=== PATIENT | male | born 1960 | race Caucasian/White ===

== ENCOUNTER → 2019-03-18 13:28 | Outpatient (CLI) | payer BC, SELFPAY ==
[2019-03-18 14:26] LABS: Add Manual Diff / Slide Review NO; Basophils Absolute Auto 0 /uL (0-100); Basophils Percent Auto 0.5 % (0-2); Eosinophils Absolute Auto 100 /uL (0-450); Eosinophils Percent Auto 1.7 % (2-4); Hematocrit 49.1 % (41-53); Hemoglobin 16.3 g/dL (13.5-17.5); Lymphocytes Absolute Auto 2000 /uL (1100-4500); Lymphocytes Percent Auto 26.2 % (25-40); Mean Corpuscular HGB Conc 33.2 % (30-36); Mean Corpuscular Volume 87.5 fL (80-100); Monocytes Absolute Auto 600 /uL (0-900); Monocytes Percent Auto 7.7 % (3-14); Neutrophils Absolute Auto 4800 /uL (1500-7000); Neutrophils Percent Auto 63.9 % (50-75); Platelet Count 283 X10^3/uL (150-400); Red Blood Cell Count 5.61 X10^6/uL (4.5-5.9); Red Cell Distribution Width 14.3 % (11.6-14.8); White Blood Cell Count 7.5 X10^3/uL (4.5-11.0)
[2019-03-18 14:28] LABS: Hemoglobin A1C% w Est Avg Glu 5.9 % (4.0-6.0)
[2019-03-18 16:13] LABS: Alanine Aminotransferase 29 IU/L (21-72); Albumin 4.6 g/dL (3.5-5.0); Albumin Globulin Ratio 1.4 (1.0-2.8); Alkaline Phosphatase 73 U/L (38-126); Aspartate Aminotransferase 25 IU/L (17-59); Bilirubin Total 1.3 mg/dL (0.2-1.3); Blood Urea Nitrogen 17 mg/dL (9-20); Calcium 9.8 mg/dL (8.4-10.2); Carbon Dioxide 27 mmol/L (22-32); Chloride 101 mmol/L (98-107); Cholesterol 229 mg/dL (140-199); Estimated Glomerular Filt Rate > 60.0 mL/min (>60); Globulin 3.4 g/dL (1.7-4.1); Glucose 107 mg/dL (70-100); HDL Cholesterol 50 mg/dL (40-60); HEMOLYSIS < 15 (0-50); LDL Cholesterol Calculated 157 mg/dL (<100); Potassium 4.5 mmol/L (3.4-5.1); Sodium 141 mmol/L (137-145); Triglycerides 109 mg/dL (35-150)
[2019-03-18 16:42] LABS: TSH w/ Reflex to FT4 2.03 uIU/mL (0.47-4.68)
[2019-03-18 16:43] LABS: Prostate Specific Antigen Scrn 1.41 ng/mL (0.1-4.0)
== END ==
PROVIDERS: PCP Nurse Practitioner; Visit Provider Nurse Practitioner
DX: R03.0 Elevated blood-pressure reading, without diagnosis of hypertension (principal); R73.09 Other abnormal glucose; Z13.220 Encounter for screening for lipoid disorders; Z13.29 Encounter for screening for other suspected endocrine disorder
CPT/HCPCS: 36415; 80053; 80061; 83036; 84443; 85025; G0103

== ENCOUNTER → 2021-05-27 13:04 | Outpatient (CLI) | payer OTHER, SELFPAY ==
[2021-05-27 14:16] LABS: COVID19 -Nasal RAPID POSITIVE (Negative)
== END ==
PROVIDERS: PCP Nurse Practitioner; Visit Provider Nurse Practitioner Family
DX: R35.0 Frequency of micturition (principal); U07.1 COVID-19; Z20.822 Contact with and (suspected) exposure to COVID-19; R53.83 Other fatigue; R52 Pain, unspecified
CPT/HCPCS: 87086; 87635

== ENCOUNTER 2024-03-21 10:20 | Emergency (ER) | payer SELFPAY ==
[2024-03-21] VITALS (10 sets, daily range): BP systolic 122–145; BP diastolic 81–96; PULSE 81–112; RESP 16–22; TEMP 36.2; O2SAT 96–99; BMI 24.8
--- NOTE | 2024-03-21 10:32 | DI.RAD.S_ITS ---
PROCEDURE: XR CHEST 1V INDICATIONS: chest pain TECHNIQUE: One view of the chest was acquired. COMPARISON: [facility], , CHEST 1 VIEW, 12/05/2014, 17:38. FINDINGS: Surgical changes and devices: None. Lungs and pleura: Lungs are clear. No pleural effusions or pneumothorax. Mediastinum: Mediastinal contours appear normal. Heart size is normal. Bones and chest wall: No suspicious bony lesions. Overlying soft tissues appear unremarkable. IMPRESSION: No acute cardiopulmonary abnormality is seen. Dictated by: Gael Euceda M.D. on 03/21/2024 at 10:03 Approved by: Gael Euceda M.D. on 03/21/2024 at 10:03
--- NOTE | 2024-03-21 10:39 | EKG_ITS ---
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
[2024-03-21 10:49] LABS: Add Manual Diff / Slide Review NO; Basophils Absolute Auto 0 /uL (0-100); Basophils Percent Auto 0.7 % (0-2); Eosinophils Absolute Auto 300 /uL (0-450); Eosinophils Percent Auto 3.9 % (2-4); Hematocrit 42.9 % (41-53); Hemoglobin 14.4 g/dL (13.5-17.5); Lymphocytes Absolute Auto 2100 /uL (1100-4500); Lymphocytes Percent Auto 32.6 % (25-40); Mean Corpuscular HGB Conc 33.6 % (30-36); Mean Corpuscular Hemoglobin 29.5 PG (26-34); Mean Corpuscular Volume 87.8 fL (80-100); Monocytes Absolute Auto 800 /uL (0-900); Monocytes Percent Auto 11.7 % (3-14); Neutrophils Absolute Auto 3300 /uL (1500-7000); Neutrophils Percent Auto 51.1 % (50-75); Platelet Count 290 X10^3/uL (150-400); Red Blood Cell Count 4.89 X10^6/uL (4.5-5.9); Red Cell Distribution Width 14.3 % (11.6-14.8); White Blood Cell Count 6.5 X10^3/uL (4.5-11.0)
[2024-03-21 10:56] LABS: Prothrombin Time 11.1 SECONDS (9.4-12.5)
[2024-03-21 10:59] LABS: PTT Partial Thromboplastin Tim 33 SECONDS (25.1-36.5)
[2024-03-21 11:00] LABS: Alanine Aminotransferase 24 IU/L (<50); Albumin 4.5 g/dL (3.5-5.0); Albumin Globulin Ratio 1.5 (1.0-2.8); Alkaline Phosphatase 77 U/L (38-126); Aspartate Aminotransferase 25 IU/L (17-59); Bilirubin Total 1.2 mg/dL (0.2-1.3); Blood Urea Nitrogen 19 mg/dL (9-20); Calcium 9.1 mg/dL (8.4-10.2); Carbon Dioxide 25 mmol/L (22-32); Chloride 109 mmol/L (98-107); Creatine Kinase 99 U/L (55-170); Estimated Glomerular Filt Rate > 60 mL/min (>60); Globulin 3.1 g/dL (1.7-4.1); Glucose 123 mg/dL (80-110); HEMOLYSIS < 15 (0-50); Lipase 126 U/L (23-300); Magnesium 2.2 mg/dL (1.6-2.3); Potassium 4.4 mmol/L (3.4-5.1); Sodium 139 mmol/L (137-145); Total Protein 7.6 g/dL (6.3-8.2)
[2024-03-21 11:12] LABS: NT-proBNP (BNP-Adult 18+) 608 pg/mL (<125); Troponin I < 0.012 ng/mL (0.01-0.034)
--- NOTE | 2024-03-21 11:53 | ED_ITS ---
HPI - Arrhythmia/Palpitations General Chief Complaint: Arrhythmia/Palpitations Stated Complaint: heart fibulating? Time Seen by Provider: 03/21/24 11:48 Source: patient Mode of arrival: Ambulatory Limitations: no limitations History of Present Illness HPI narrative: 63-year-old male with no reported medical issues, no prior cardiac history presents with complaint of feeling like his heart is sort of fluttering he will feel short of breath increasingly over the past week and a half. I states sometimes he will feel like he is to take a deep breath. Patient states no chest pain or pressure, no swelling in his extremities. He states about a week and a half ago he felt sort of funny he sneezed 3 times and then started to feel symptoms. He states had episodes where he is felt like his heart was irregular in the past. Patient states he is on any prescription medications. 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 Patient states no prior surgeries. No known drug allergies. He does use zin pouches of tobacco, Mani 3 mg for 5 times daily. He states he was using 6 mg but that was too much. Occasional alcohol but not regularly. He states rare marijuana maybe once monthly. Notes his mom had a cardiac arrest in the past and had mild heart attacks on her autopsy. Her his grandmother from an [place], he had an uncle that had cardiac disease he is unsure about any arrhythmias. Shyanne velez his primary care but he does not follow regularly. 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 Related Data Previous Rx's Medication Instructions Recorded metoprolol succinate 25 mg 25 mg PO DAILY #30 tabs 03/21/24 tablet,extended release 24 hr rivaroxaban 20 mg tablet (Xarelto) 20 mg PO DAILY #30 tabs 03/21/24 Allergies Allergy/AdvReac Type Severity Reaction Status Date / Time No Known Drug Allergies Allergy Verified 03/21/24 10:23 Review of Systems Review of Systems ROS Unobtainable: All systems reviewed & are unremarkable except as noted in HPI and below Patient History Medical History Difficulty urinating Fatigue Shoulder pain (~2017) Chicken pox (~1965) Surgical History Anesthesia History of hand surgery (~1996) Family History Father Cancer Mother History of heart disease Social History Smoking Status: Former smoker Smoking Status: Former smoker alcohol intake frequency: holidays/special occasions only Substance Use Type: marijuana Exam Narrative Exam Narrative: GENERAL: Alert and oriented x three, well-appearing male in mild distress HEENT: Head normocephalic, atraumatic, EOMI, pupils reactive, face symmetric, moist mucous membranes NECK: Supple, full range of motion CARDIOVASCULAR: Irregularly regular rate and rhythm without murmurs, rubs or gallops. No JVD. No edema bilateral lower extremities. RESPIRATORY: Breath sounds equal bilaterally, no wheezes rales or rhonchi. No tachypnea or accessory muscle use ABDOMEN: Soft, nontender. Normoactive bowel sounds all 4 quadrants. No guarding or rebound, rigidity, no mass : No CVA tenderness EXTREMITIES: Normal range of motion, no clubbing or edema. Neurovascularly intact NEUROLOGICAL: Cranial nerves II through XII grossly intact. Moving all extremities SKIN: Warm, dry, no petechiae, no rashes or lesions. Initial Vital Signs Initial Vital Signs: Vital Signs Temperature 97.2 F L 03/21/24 10:23 Pulse Rate 81 03/21/24 10:23 Respiratory Rate 18 03/21/24 10:23 Blood Pressure 126/88 03/21/24 10:23 Pulse Oximetry 99 03/21/24 10:23 Oxygen Delivery Method Room Air 03/21/24 10:23 Scores CHADS-VASc Congestive heart failure: no Hypertension: no Age 75 years or older: no Diabetes mellitus: no Stroke, TIA, or TE: no Vascular disease: no Age 65 to 74 years: no Sex category (female): Male CHADS-VASc Score: 0 Course Orders Ordered: ED Orders 03/21/24 10:32 XR chest 1V Stat EKG-12 Lead Stat 03/21/24 10:40 Complete Blood Count AUTO DIFF Stat Comprehensive Metabolic Panel Stat Lipase Stat Magnesium Stat NT-proBNP (BNP-Adult 18+) Stat PTT Partial Thromboplastin Anthony Stat Prothrombin Time INR Stat Troponin & CK Cardiac Panel Stat 03/21/24 12:40 Trop I [Troponin I] Stat Discontinued Medications Aspirin (Aspirin 81 Mg Chew Tab) 324 mg PO NOW ONE Stop: 03/21/24 10:33 Last Admin: 03/21/24 11:45 Dose: Not Given Documented By: Metoprolol Succinate (Metoprolol Er 25 Mg Tablet) 25 mg PO NOW ONE Stop: 03/21/24 12:21 Last Admin: 03/21/24 12:25 Dose: 25 mg Documented By: Rivaroxaban (Rivaroxaban 10 Mg Tablet) 20 mg PO NOW ONE Stop: 03/21/24 13:47 Last Admin: 03/21/24 13:57 Dose: 20 mg Documented By: TC Vital Signs Vital signs: Vital Signs - 8 hr 03/21/24 10:44 03/21/24 11:00 03/21/24 11:01 Pulse Rate 108 H 93 H Respiratory Rate 22 Blood Pressure 126/83 Pulse Oximetry 97 97 03/21/24 11:01 03/21/24 11:30 03/21/24 11:30 Pulse Rate 91 H 89 Respiratory Rate 17 16 Blood Pressure 122/81 Pulse Oximetry 97 98 03/21/24 12:00 03/21/24 12:30 03/21/24 12:30 Pulse Rate 94 H 95 H Respiratory Rate 20 19 Blood Pressure 145/92 H Pulse Oximetry 97 98 03/21/24 13:00 03/21/24 13:30 03/21/24 13:30 Pulse Rate 96 H 98 H Respiratory Rate 21 22 Blood Pressure 124/96 H Pulse Oximetry 98 96 MDM - Arrhythmia/Palpitations Lab Data 03/21/24 10:40 03/21/24 10:40 Labs: Lab Results 03/21/24 03/21/24 Range/Units 10:40 12:40 WBC 6.5 (4.5-11.0) X10^3/uL RBC 4.89 (4.5-5.9) X10^6/uL Hgb 14.4 (13.5-17.5) g/dL Hct 42.9 (41-53) % MCV 87.8 (80-100) fL MCH 29.5 (26-34) PG MCHC 33.6 (30-36) % RDW 14.3 (11.6-14.8) % Plt Count 290 (150-400) X10^3/uL Neut % (Auto) 51.1 (50-75) % Lymph % (Auto) 32.6 (25-40) % [place] % (Auto) 11.7 (3-14) % Eos % (Auto) 3.9 (2-4) % Baso % (Auto) 0.7 (0-2) % Neut # (Auto) 3300 (8912-0531) /uL Lymph # (Auto) 2100 (8145-0970) /uL [place] # (Auto) 800 (0-900) /uL Eos # (Auto) 300 (0-450) /uL Baso # (Auto) 0 (0-100) /uL PT 11.1 (9.4-12.5) SECONDS INR 1.0 (0.9-1.3) APTT 33 (25.1-36.5) SECONDS Sodium 139 (137-145) mmol/L Potassium 4.4 (3.4-5.1) mmol/L Chloride 109 H (98-107) mmol/L Carbon Dioxide 25 (22-32) mmol/L BUN 19 (9-20) mg/dL Creatinine 0.95 (0.66-1.25) mg/dL Estimated GFR > 60 (>60) mL/min BUN/Creatinine Ratio 20.0 (6-22) Glucose 123 H (80-110) mg/dL Calcium 9.1 (8.4-10.2) mg/dL Magnesium 2.2 (1.6-2.3) mg/dL Total Bilirubin 1.2 (0.2-1.3) mg/dL AST 25 (17-59) IU/L ALT 24 (<50) IU/L Alkaline Phosphatase 77 (38-126) U/L Total Creatine Kinase 99 (55-170) U/L Troponin I < 0.012 < 0.012 (0.01-0.034) ng/mL NT-Pro-B Natriuret Pep 608 H (<125) pg/mL Total Protein 7.6 (6.3-8.2) g/dL Albumin 4.5 (3.5-5.0) g/dL Globulin 3.1 (1.7-4.1) g/dL Albumin/Globulin Ratio 1.5 (1.0-2.8) Lipase 126 (23-300) U/L Imaging Data Chest x-ray: Radiologist's Impresson: Heber Gutierrez??63??M??1960 ? Allergy/Adv: No Known Drug Allergies (More??) Close Chest X-Ray (Signed) KinseyGael - 03/21/24 Launch?Image [address] [address] XRay Report Signed Patient: Heber Gutierrez MR#: [id number] : 1960 Acct:[id number] Age/Sex: 63 / M Date of Service: 03/21/24 Loc: ED Accession Number: [id number] Procedure: XR chest 1V Ordering Provider: Annabella Guajardo D.O. PROCEDURE: XR CHEST 1V INDICATIONS: chest pain TECHNIQUE: One view of the chest was acquired. COMPARISON: [facility], , CHEST 1 VIEW, 12/05/2014, 17:38. FINDINGS: Surgical changes and devices: None. Lungs and pleura: Lungs are clear. No pleural effusions or pneumothorax. Mediastinum: Mediastinal contours appear normal. Heart size is normal. Bones and chest wall: No suspicious bony lesions. Overlying soft tissues appear unremarkable. IMPRESSION: No acute cardiopulmonary abnormality is seen. Dictated by: Gael Euceda M.D. on 03/21/2024 at 10:03 Approved by: Gael Euceda M.D. on 03/21/2024 at 10:03 ECG Data Attestation: I personally reviewed and interpreted this ECG as follows: Prior ECG tracings: not available for review Interpretation: EKG shows what appears to be atrial fib, rate of 103 QRS of 100 QTC of 489, nonspecific ST change. No priors for comparison. 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 No known cardiac history, patient has not had any chest pain or pressure has felt short of breath with episodes of palpitations. He has had symptoms for at least a week and a half he has not anticoagulated not a candidate for cardioversion as he is currently stable. Patient is not on any daily medications. Labs show white count of 6.5 hemoglobin of 14 platelets of 290, INR 1, sodium 139 potassium 4.4 chloride of 109 CO2 25 BUN 19 creatinine 0.95 glucose of 123 calcium 9.1 Mag 2.2, LFTs are negative troponins less than 0.012 BNP is 608, lipase is 126. Troponin was repeated it is less than 0.012 Chest x-ray shows no acute change EKG shows appears to be atrial fibrillation, read as atrial flutter but patient is irregularly irregular with possible flutter waves but could be motion artifact. Rate is 103 QRS is 100 QTC is 489, no acute ST elevation depression. Discussed with patient he is fairly rate controlled in the room was given a dose of oral metoprolol, discussed anticoagulation risks versus benefits. Patient's CHADS-VASc score is 0. Discussed with patient he is agreeable to anticoagulation. He does not currently have insurance so we will send scripts but also given good Rx prescription and met with [employer] [employer] he is self-employed. We will give referral for Cardiology well as primary care follow up. Discussed with patient, he is fairly low risk but has likely been in and out of AFib for some time. Patient is self-employed. We will send prescription for anticoagulation but discussed warfarin is negative, discussed he is lower risk but not impossible for stroke and could not aspirin daily has not alternative. Patient is agreeable to full anticoagulation. Discharge Plan Departure Patient Disposition: Home Clinical Impression: Atrial fibrillation Instructions: DI for Atrial Fibrillation Activity Restrictions/Additional Instructions: Follow up with primary care and/or cardiology. Please call to set up an appointment contact for cardiology's included. Please call your physician tomorrow to set up follow-up. They will likely have you follow up to have an echo and possibly Holter monitor or ZIO patch to assess how frequently you are in atrial fibrillation. You appear to be in atrial fibrillation, this is an electrical conduction issue. 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 Aspirin we will give some protection but does not give complete protection against stroke. Take the Xarelto once daily. If this medication is too expensive, the pharmacist can call us if they can change it, if necessary you can follow up with primary care and they can prescribe Coumadin or warfarin which is cheaper but requires regular lab checks. Take metoprolol once daily this medication is to help control the speed of your heart rate. Prescriptions sent to [facility]. Please return for new chest pain, increasing shortness of breath any lightheadedness or passing out, persistently fast or elevated heart rate, new swelling of your extremities or other new or concerning changes. Prescriptions: New Xarelto 20 mg tablet 20 mg PO DAILY Qty: 30 0RF Rx Instructions: must administer with evening meal metoprolol succinate 25 mg tablet extended release 24 hr 25 mg PO DAILY Qty: 30 0RF Referrals: Shyanne Velez ARNP [Primary Care Provider] - Sebastien August MD [Physician] - Stand Alone Forms: Patient Portal/API
[2024-03-21] MEDS: METOPROLOL ER 25 MG TABLET PO (12:25)
[2024-03-21 13:08] LABS: Troponin I < 0.012 ng/mL (0.01-0.034)
[2024-03-21] MEDS: RIVAROXABAN 10 MG TABLET 20 MG PO (13:57)
== END 2024-03-21 14:00 | disposition home or self-care (01) ==
PROVIDERS: Emergency Provider Emergency Medicine; PCP Nurse Practitioner
DX: I48.91 Unspecified atrial fibrillation (principal); R07.9 Chest pain, unspecified; Z79.01 Long term (current) use of anticoagulants
CPT/HCPCS: 36415; 71045; 80053; 82550; 83690; 83735; 83880; 84484; 85025; 85610; 85730; 93005; 99284

== ENCOUNTER 2024-03-22 02:13 | Emergency (ER) | payer SELFPAY ==
[2024-03-22] VITALS (10 sets, daily range): BP systolic 114–139; BP diastolic 68–104; PULSE 83–100; RESP 16–33; TEMP 36.9; O2SAT 95–98; BMI 25.0
--- NOTE | 2024-03-22 03:16 | EKG_ITS ---
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
--- NOTE | 2024-03-22 03:16 | DI.RAD.S_ITS ---
PROCEDURE: XR CHEST 1V INDICATIONS: chest pain TECHNIQUE: One view of the chest was acquired. COMPARISON: [facility], CR, XR CHEST 1V, 03/21/2024, 10:42. FINDINGS: Surgical changes and devices: None. Lungs and pleura: Lungs are clear. No pleural effusions or pneumothorax. Mediastinum: Mediastinal contours appear normal. Heart size is normal. Bones and chest wall: No suspicious bony lesions. Overlying soft tissues appear unremarkable. IMPRESSION: No acute cardiopulmonary pathology. No significant changes from previous study. No discrepancies from preliminary reading. Dictated by: Huy August M.D. on 03/22/2024 at 8:03 Approved by: Huy August M.D. on 03/22/2024 at 8:04
--- NOTE | 2024-03-22 03:16 | ED.ARRPALP ---
HPI - Arrhythmia/Palpitations General Chief Complaint: Arrhythmia/Palpitations Stated Complaint: was seen earlier heart issue Time Seen by Provider: 03/22/24 03:16 Source: patient Mode of arrival: Ambulatory History of Present Illness HPI narrative: 63-year-old male seen here yesterday with palpitation symptoms found to have atrial fibrillation, was not on anticoagulation, CHADS-VASc score 0, was started on Xarelto, no rapid ventricular response, started on metoprolol, who was to be seeing Cardiology in follow up, no cardioversion, no documentation of aversion to normal sinus rhythm while in the emergency department, now presents again with palpitation like symptoms. He was going to follow up with Cardiology as an outpatient on new Xarelto anticoagulation, taking same metoprolol. He feels that he is having palpitation symptoms. No syncope or presyncope symptoms. No shortness of breath or chest pain. Patient seems more concern that he can not sleep for the last couple of days, unclear if the palpitation symptoms are actually keeping him from sleeping. He would like something for sleep Related Data Previous Rx's Medication Instructions Recorded metoprolol succinate 25 mg 25 mg PO DAILY #30 tabs 03/21/24 tablet,extended release 24 hr rivaroxaban 20 mg tablet (Xarelto) 20 mg PO DAILY #30 tabs 03/21/24 hydroxyzine HCl 50 mg tablet 50 mg PO BEDTIME #14 tabs 03/22/24 Allergies Allergy/AdvReac Type Severity Reaction Status Date / Time No Known Drug Allergies Allergy Verified 03/21/24 10:23 Review of Systems Review of Systems Narrative: per HPI Patient History Medical History Difficulty urinating Fatigue Shoulder pain (~2017) Chicken pox (~1965) Surgical History Anesthesia History of hand surgery (~1996) Family History Father Cancer Mother History of heart disease Social History Smoking Status: Former smoker Smoking Status: Former smoker alcohol intake frequency: holidays/special occasions only Substance Use Type: marijuana Exam Narrative Exam Narrative: GENERAL: Well-developed patient, in mild distress. HEAD: Atraumatic. Normocephalic. EYES: Pupils equal round and reactive. Extraocular motions intact. No scleral icterus. No injection or drainage. ENT: Nose without bleeding, purulent drainage. Throat without erythema, tonsillar hypertrophy or exudate. Airway patent. NECK: Trachea midline. Non tender CARDIOVASCULAR: Irregularly irregular without murmurs, gallops, or rubs. RESPIRATORY: Clear to auscultation. Breath sounds equal bilaterally. No wheezes, rales, or rhonchi. GASTROINTESTINAL: Abdomen soft, non-tender, nondistended. EXTREMITIES: No edema or joint tenderness. BACK: Nontender without deformity or crepitance. No flank tenderness. NEURO: AOx3. SKIN: No rash or erythema of visible areas Initial Vital Signs Initial Vital Signs: Vital Signs Temperature 98.4 F 03/22/24 02:25 Pulse Rate 91 H 03/22/24 02:25 Respiratory Rate 20 03/22/24 02:25 Blood Pressure 132/90 03/22/24 02:25 Pulse Oximetry 96 03/22/24 02:25 Oxygen Delivery Method Room Air 03/22/24 02:25 Course Orders Ordered: ED Orders 03/22/24 03:10 Complete Blood Count AUTO DIFF Stat Comprehensive Metabolic Panel Stat Lipase Stat Troponin & CK Cardiac Panel Stat 03/22/24 03:16 XR chest 1V Stat EKG-12 Lead Stat Discontinued Medications Hydroxyzine HCl (Hydroxyzine 50 Mg/Ml Inj) 50 mg IM NOW ONE Stop: 03/22/24 03:56 Last Admin: 03/22/24 04:15 Dose: Not Given Documented By: JESICA Hydroxyzine HCl (Hydroxyzine Hcl 25 Mg Tablet) 50 mg PO NOW ONE Stop: 03/22/24 04:07 Last Admin: 03/22/24 04:11 Dose: 50 mg Documented By: JESICA Sodium Chloride (Normal Saline 0.9%) 1,000 mls @ 150 mls/hr IV CONT NANETTE Last Infusion: 03/22/24 06:26 Dose: 0 mls/hr Documented By: Admin: 03/22/24 04:10 Dose: 150 mls/hr Documented By: JESICA Metoprolol Succinate (Metoprolol Er 25 Mg Tablet) 25 mg PO NOW ONE Stop: 03/22/24 03:59 Last Admin: 03/22/24 04:11 Dose: 25 mg Documented By: JESICA Vital Signs Vital signs: Vital Signs - 8 hr 03/22/24 02:25 03/22/24 03:00 03/22/24 03:01 Temperature 98.4 F Pulse Rate 91 H 83 Respiratory Rate 20 Blood Pressure 132/90 131/84 Pulse Oximetry 96 98 Oxygen Delivery Method Room Air 03/22/24 03:01 03/22/24 03:30 03/22/24 03:30 Temperature Pulse Rate 95 H 90 Respiratory Rate 20 Blood Pressure 129/87 Pulse Oximetry 97 97 Oxygen Delivery Method 03/22/24 04:00 03/22/24 04:00 03/22/24 04:11 Temperature Pulse Rate 90 98 H Respiratory Rate 17 Blood Pressure 122/80 122/80 Pulse Oximetry 95 Oxygen Delivery Method 03/22/24 04:30 03/22/24 04:30 03/22/24 05:00 Temperature Pulse Rate 97 H Respiratory Rate 32 H Blood Pressure 114/68 124/89 Pulse Oximetry 98 Oxygen Delivery Method 03/22/24 05:00 03/22/24 05:30 03/22/24 05:30 Temperature Pulse Rate 100 H 98 H Respiratory Rate 33 H 16 Blood Pressure 134/88 Pulse Oximetry 97 98 Oxygen Delivery Method 03/22/24 06:00 03/22/24 06:00 Temperature Pulse Rate 96 H Respiratory Rate 19 Blood Pressure 139/104 H Pulse Oximetry 96 Oxygen Delivery Method MDM - Arrhythmia/Palpitations Lab Data 03/22/24 03:10 03/22/24 03:10 Labs: Lab Results 03/22/24 Range/Units 03:10 WBC 5.2 (4.5-11.0) X10^3/uL RBC 4.64 (4.5-5.9) X10^6/uL Hgb 13.6 (13.5-17.5) g/dL Hct 40.7 L (41-53) % MCV 87.7 (80-100) fL MCH 29.4 (26-34) PG MCHC 33.5 (30-36) % RDW 14.6 (11.6-14.8) % Plt Count 265 (150-400) X10^3/uL Neut % (Auto) 43.7 L (50-75) % Lymph % (Auto) 36.6 (25-40) % [place] % (Auto) 13.0 (3-14) % Eos % (Auto) 5.8 H (2-4) % Baso % (Auto) 0.9 (0-2) % Neut # (Auto) 2300 (5702-0662) /uL Lymph # (Auto) 1900 (7228-6530) /uL [place] # (Auto) 700 (0-900) /uL Eos # (Auto) 300 (0-450) /uL Baso # (Auto) 0 (0-100) /uL Sodium 139 (137-145) mmol/L Potassium 3.9 (3.4-5.1) mmol/L Chloride 110 H (98-107) mmol/L Carbon Dioxide 23 (22-32) mmol/L BUN 21 H (9-20) mg/dL Creatinine 0.83 (0.66-1.25) mg/dL Estimated GFR > 60 (>60) mL/min BUN/Creatinine Ratio 25.3 H (6-22) Glucose 127 H (80-110) mg/dL Calcium 8.9 (8.4-10.2) mg/dL Total Bilirubin 0.8 (0.2-1.3) mg/dL AST 22 (17-59) IU/L ALT 21 (<50) IU/L Alkaline Phosphatase 78 (38-126) U/L Total Creatine Kinase 79 (55-170) U/L Troponin I < 0.012 (0.01-0.034) ng/mL Total Protein 6.9 (6.3-8.2) g/dL Albumin 4.0 (3.5-5.0) g/dL Globulin 2.9 (1.7-4.1) g/dL Albumin/Globulin Ratio 1.4 (1.0-2.8) Lipase 145 (23-300) U/L Imaging Data Chest x-ray: Radiologist's Impresson: ?no acute cardiopulmonary abnormality is identified. ? see tele radiology report ECG Data Interpretation: Atrial fibrillation with rate 91, QRS 100, QTC 460. No obvious ST segment elevation or depression changes. [facility] Narrative Medical decision making narrative: 63-year-old male with diagnosis of atrial fibrillation visit yesterday, low anticoagulation risk score CHADS-VASc, started on Xarelto anticoagulation, advised to continue metoprolol, was awaiting cardiology follow up. Returns with palpitation symptoms. No syncope or presyncope. No chest pain. Afebrile, sirs screen negative. Screening EKG shows atrial fibrillation with ventricular rate 91, without obvious ischemic changes. Electrolytes and troponin negative. Patient most concerned about lack of sleep, would like something for sleep. He does not want to have benzodiazepines that might be addictive. PO hydroxyzine He felt better, wanted to go home, we will prescribe trial of hydroxyzine to see if this helps with his insomnia to use before bed. Otherwise encouraged to continue his metoprolol and Xarelto new medications, and follow up with Cardiology as planned from visit yesterday. Expressed understanding of this plan, and agreed. Home with family. Return precautions discussed Discharge Plan Departure Patient Disposition: Home Clinical Impression: Insomnia, Atrial fibrillation Activity Restrictions/Additional Instructions: Recent evaluation for atrial fibrillation, started on Xarelto anticoagulation and metoprolol for rate control yesterday, not yet filling the medication. Today had more concern about inability to sleep and insomnia. Oral hydroxyzine given, tolerated well. EKG showed presence of atrial fibrillation, without rapid response. Morning dose of metoprolol given. Failure medication prescriptions and take as directed. Consider use of hydroxyzine, prescription sent to your pharmacy, to see if it might help with sleep. 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 Return to this/nearest emergency department for any change worsening symptoms or any concerns prior Prescriptions: New hydroxyzine HCl 50 mg tablet 50 mg PO BEDTIME Qty: 14 0RF No Action Xarelto 20 mg tablet 20 mg PO DAILY Qty: 30 0RF Rx Instructions: must administer with evening meal metoprolol succinate 25 mg tablet extended release 24 hr 25 mg PO DAILY Qty: 30 0RF Referrals: Shyanne Velez ARNP [Primary Care Provider] - Stand Alone Forms: Patient Portal/API
[2024-03-22 03:29] LABS: Add Manual Diff / Slide Review NO; Basophils Absolute Auto 0 /uL (0-100); Basophils Percent Auto 0.9 % (0-2); Eosinophils Absolute Auto 300 /uL (0-450); Eosinophils Percent Auto 5.8 % (2-4); Hematocrit 40.7 % (41-53); Hemoglobin 13.6 g/dL (13.5-17.5); Lymphocytes Absolute Auto 1900 /uL (1100-4500); Lymphocytes Percent Auto 36.6 % (25-40); Mean Corpuscular HGB Conc 33.5 % (30-36); Mean Corpuscular Hemoglobin 29.4 PG (26-34); Mean Corpuscular Volume 87.7 fL (80-100); Monocytes Absolute Auto 700 /uL (0-900); Neutrophils Absolute Auto 2300 /uL (1500-7000); Neutrophils Percent Auto 43.7 % (50-75); Platelet Count 265 X10^3/uL (150-400); Red Blood Cell Count 4.64 X10^6/uL (4.5-5.9); Red Cell Distribution Width 14.6 % (11.6-14.8); White Blood Cell Count 5.2 X10^3/uL (4.5-11.0)
[2024-03-22 03:41] LABS: Alanine Aminotransferase 21 IU/L (<50); Albumin Globulin Ratio 1.4 (1.0-2.8); Alkaline Phosphatase 78 U/L (38-126); Aspartate Aminotransferase 22 IU/L (17-59); BUN Creatinine Ratio 25.3 (6-22); Bilirubin Total 0.8 mg/dL (0.2-1.3); Blood Urea Nitrogen 21 mg/dL (9-20); Calcium 8.9 mg/dL (8.4-10.2); Carbon Dioxide 23 mmol/L (22-32); Chloride 110 mmol/L (98-107); Creatine Kinase 79 U/L (55-170); Estimated Glomerular Filt Rate > 60 mL/min (>60); Globulin 2.9 g/dL (1.7-4.1); Glucose 127 mg/dL (80-110); HEMOLYSIS < 15 (0-50); Lipase 145 U/L (23-300); Potassium 3.9 mmol/L (3.4-5.1); Sodium 139 mmol/L (137-145); Total Protein 6.9 g/dL (6.3-8.2)
[2024-03-22 03:52] LABS: Troponin I < 0.012 ng/mL (0.01-0.034)
[2024-03-22] MEDS: SODIUM CHLORIDE 0.9% 1,000 ML 150 ML IV (04:10)
[2024-03-22] MEDS: METOPROLOL ER 25 MG TABLET PO (04:11)
[2024-03-22] MEDS: hydrOXYzine HCL 25 MG TABLET 50 MG PO (04:11)
== END 2024-03-22 06:29 | disposition home or self-care (01) ==
PROVIDERS: Emergency Provider Emergency Medicine; PCP Nurse Practitioner
DX: I48.91 Unspecified atrial fibrillation (principal); Z79.01 Long term (current) use of anticoagulants; G47.00 Insomnia, unspecified
CPT/HCPCS: 36415; 71045; 80053; 82550; 83690; 84484; 85025; 93005; 99284; A9270

== ENCOUNTER 2024-09-18 02:01 | Emergency (ER) | payer SELFPAY ==
[2024-09-18] VITALS (7 sets, daily range): BP systolic 145–207; BP diastolic 98–111; PULSE 86–107; RESP 16–17; TEMP 36.7; O2SAT 97–100; BMI 23.7
--- NOTE | 2024-09-18 02:26 | ED_ITS ---
HPI - General Adult General Chief complaint: Abdominal Pain Stated complaint: knot in stomach Time Seen by Provider: 09/18/24 02:20 Source: patient Mode of arrival: Ambulatory History of Present Illness HPI narrative: Patient is a 64-year-old male. Here for evaluation of stomach discomfort. He states he was recently been here in the hospital. Was diagnosed with AFib. Had that issue resolved. Was on medications but he states that he was since stopped taking the medicine because he felt like he was causing issues to include abdominal pain and problems urinating. He reports no chest pain or shortness of breath or fevers. He states that he was able to urinate but it takes quite a bit for him to start the stream. He was to strain quite a bit. While he was straining earlier this evening he had a sharp pain in the left side of his abdomen that up to his left flank. He was had a urinary tract infection in the past. Does not see urology on a regular basis. No problems with bowel movements. Related Data Previous Rx's Medication Instructions Recorded metoprolol succinate 25 mg 25 mg PO DAILY #30 tabs 03/21/24 tablet,extended release 24 hr rivaroxaban 20 mg tablet (Xarelto) 20 mg PO DAILY #30 tabs 03/21/24 hydroxyzine HCl 50 mg tablet 50 mg PO BEDTIME #14 tabs 03/22/24 tamsulosin 0.4 mg capsule (Flomax) 0.4 mg PO DAILY #30 caps 09/18/24 Allergies Allergy/AdvReac Type Severity Reaction Status Date / Time No Known Drug Allergies Allergy Verified 03/21/24 10:23 Review of Systems Review of Systems ROS Unobtainable: All systems reviewed & are unremarkable except as noted in HPI and below Patient History Medical History Difficulty urinating Fatigue Shoulder pain (~2017) Chicken pox (~1965) Surgical History Anesthesia History of hand surgery (~1996) Family History Father Cancer Mother History of heart disease Social History Smoking Status: Former smoker Smoking Status: Former smoker alcohol intake frequency: holidays/special occasions only Exam Initial Vital Signs Initial Vital Signs: Vital Signs Temperature 98.0 F 09/18/24 02:14 Pulse Rate 86 09/18/24 02:14 Respiratory Rate 17 09/18/24 02:14 Blood Pressure 207/102 H 09/18/24 02:14 Pulse Oximetry 98 09/18/24 02:14 Oxygen Delivery Method Room Air 09/18/24 02:14 Const General: cooperative and No ill appearing HENTN Head: normal to inspection and normocephalic Resp Effort & Inspection: normal respiratory effort Cardio Rate: regular rate GI Inspection: distended Palpation: soft, No firm, No guarding and tender (Left lower quadrant) Skin General: no rashes or lesions noted Neuro General: patient alert and moves all extremities Course Orders Ordered: ED Orders 09/18/24 02:25 Complete Blood Count AUTO DIFF Stat Comprehensive Metabolic Panel Stat Lipase Stat 09/18/24 02:27 CT abdomen pelvis w con Stat Discontinued Medications Lidocaine HCl (Lidocaine 2% (Glydo) 6 Ml Gel) 6 ml TOP NOW ONE Stop: 09/18/24 03:35 Last Admin: 09/18/24 03:45 Dose: 6 ml Documented By: GOLD Vital Signs Vital signs: Vital Signs - 8 hr 09/18/24 02:14 09/18/24 02:30 09/18/24 03:03 Temperature 98.0 F Pulse Rate 86 98 H 107 H Respiratory Rate 17 16 Blood Pressure 207/102 H 151/111 H Pulse Oximetry 98 97 Oxygen Delivery Method Room Air Room Air 09/18/24 03:30 09/18/24 04:00 Temperature Pulse Rate 99 H 94 H Respiratory Rate Blood Pressure 148/98 H Pulse Oximetry 99 98 Oxygen Delivery Method Room Air Medical Decision Making Medical Records Medical records reviewed: Yes I reviewed the patient's medical records. Lab Data Lab results reviewed: Yes I reviewed the patient's lab results. 09/18/24 02:25 09/18/24 02:25 Labs: Lab Results 09/18/24 Range/Units 02:25 WBC 8.6 (4.5-11.0) X10^3/uL RBC 4.51 (4.5-5.9) X10^6/uL Hgb 13.4 L (13.5-17.5) g/dL Hct 40.0 L (41-53) % MCV 88.8 (80-100) fL MCH 29.7 (26-34) PG MCHC 33.4 (30-36) % RDW 14.2 (11.6-14.8) % Plt Count 247 (150-400) X10^3/uL Neut % (Auto) 63.3 (50-75) % Lymph % (Auto) 23.2 L (25-40) % [place] % (Auto) 9.8 (3-14) % Eos % (Auto) 3.2 (2-4) % Baso % (Auto) 0.5 (0-2) % Neut # (Auto) 5500 (3137-5604) /uL Lymph # (Auto) 2000 (8907-2685) /uL [place] # (Auto) 800 (0-900) /uL Eos # (Auto) 300 (0-450) /uL Baso # (Auto) 0 (0-100) /uL Sodium 137 (137-145) mmol/L Potassium 4.1 (3.4-5.1) mmol/L Chloride 108 H (98-107) mmol/L Carbon Dioxide 23 (22-32) mmol/L BUN 27 H (9-20) mg/dL Creatinine 1.92 H (0.66-1.25) mg/dL Estimated GFR 39 L (>60) mL/min BUN/Creatinine Ratio 14.1 (6-22) Glucose 113 H (80-110) mg/dL Calcium 9.4 (8.4-10.2) mg/dL Total Bilirubin 0.8 (0.2-1.3) mg/dL AST 36 (17-59) IU/L ALT 32 (<50) IU/L Alkaline Phosphatase 78 (38-126) U/L Total Protein 7.4 (6.3-8.2) g/dL Albumin 4.2 (3.5-5.0) g/dL Globulin 3.2 (1.7-4.1) g/dL Albumin/Globulin Ratio 1.3 (1.0-2.8) Lipase 150 (23-300) U/L Urine Dip Bedside Urine Glucose Negative Bedside Urine Bilirubin - Negative Bedside Urine Ketone - Negative Urine Specific [place] 1.010 Bedside Urine Occult Blood - Negative Bedside Urine pH 6.0 Bedside Urine Protein - Negative Bedside Urine Urobilinogen - Negative Bedside Urine Nitrite - Negative Bedside Urine Leukocytes - Negative Esterase Point of care testing: Urine Dip Bedside Urine Glucose Negative Bedside Urine Bilirubin - Negative Bedside Urine Ketone - Negative Urine Specific [place] 1.010 Bedside Urine Occult Blood - Negative Bedside Urine pH 6.0 Bedside Urine Protein - Negative Bedside Urine Urobilinogen - Negative Bedside Urine Nitrite - Negative Bedside Urine Leukocytes - Negative Esterase Imaging Data CT scan - abdomen/pelvis: Radiologist's Impression: Findings indicative of bladder outlet obstruction resulting in moderate to severe bilateral hydronephrosis and hydroureter. MDM Narrative Medical decision making narrative: Patient does have an elevation in his creatinine. CT scan shows markedly distended bladder. Alicea catheter was placed. Result in almost 3 L of urine. Urinalysis is unremarkable. I suspect that his symptoms are related to chronic outlet obstruction most likely related to enlarged prostate. He states that after his Alicea catheter was placed he was feeling much better. There was no signs of a urinary tract infection. Will start the patient on Flomax. Discharged home with Alicea catheter in place. Will have him follow up with Urology. He was given return precautions. He expressed understanding and agreement. Discharge Plan Departure Patient Disposition: Home Clinical Impression: Acute urinary retention Instructions: How to Care for Your Alicea Catheter -- Male, DI for Urinary Retention in Men Activity Restrictions/Additional Instructions: I do recommend that you continue to take all of your medications as directed. On Friday contact the urology office with the number provided below for follow- up. Also recommend you contact your primary doctor for follow-up. Return to the emergency department for new symptoms. Prescriptions: New tamsulosin [Flomax] 0.4 mg capsule 0.4 mg PO DAILY Qty: 30 0RF No Action Xarelto 20 mg tablet 20 mg PO DAILY Qty: 30 0RF Rx Instructions: must administer with evening meal metoprolol succinate 25 mg tablet extended release 24 hr 25 mg PO DAILY Qty: 30 0RF hydroxyzine HCl 50 mg tablet 50 mg PO BEDTIME Qty: 14 0RF Referrals: Humphrey García DO [Physician] - Shyanne Velez ARNP [Primary Care Provider] - Stand Alone Forms: Patient Portal/API/Survey
--- NOTE | 2024-09-18 02:27 | DI.CT.S_ITS ---
PROCEDURE: CT ABDOMEN PELVIS W CON INDICATIONS: Left lower quadrant abdominal pain TECHNIQUE: After the administration of intravenous contrast, axial sections acquired from the lung bases to the pubic symphysis. Coronal and sagittal reformats were performed. For radiation dose reduction, the following was used: automated exposure control, adjustment of mA and/or kV according to patient size. COMPARISON: [facility], CT, ABDOMEN/PELVIS WITH CONTRAST, 12/05/2014, 18:44. FINDINGS: Image quality: Diagnostic Lower chest: Basal atelectasis. Multiple small pulmonary nodules again seen, none overtly suspicious appearing. They are under 6 mm. Consider 1 year follow-up if the patient is considered at elevated risk of lung malignancy. Liver: Unremarkable Gallbladder and biliary system: Unremarkable, nondilated Pancreas: No ductal dilation Spleen: Nonenlarged Adrenals: No discrete nodules Kidneys: No obstructing stone is seen, however there is bilateral moderate hydroureteronephrosis. Delayed nephrogram, greater on the right. Mild perinephric edematous fat stranding. No solid renal mass Vessels and lymph nodes: Main portal vein appears patent. No abdominal aortic aneurysm. No pathologic lymph nodes by size criteria. Bowel and peritoneum: No evidence of small bowel obstruction. No pathologic ascites. Body wall: Unremarkable Pelvis: Heterogeneous prostate, not well assessed on this study. There is medial lobe hypertrophy which impinges at the bladder neck. The bladder is markedly distended. Bones: There are degenerative changes. Multiple endplate deformities have the appearance of Schmorl's nodes. IMPRESSION: Marked bladder distension, likely secondary to outlet obstruction due to BPH and medial lobe hypertrophy of the prostate. Upstream obstructive nephropathy and moderate bilateral hydroureteronephrosis. The prostate can be better evaluated with MRI, depending on PSA correlation, if indicated. Other findings above. No significant discrepancy from the preliminary report. Dictated by: Williams Machado M.D. on 09/18/2024 at 8:25 Approved by: Williams Machado M.D. on 09/18/2024 at 8:32
[2024-09-18 02:35] LABS: Add Manual Diff / Slide Review NO; Basophils Absolute Auto 0 /uL (0-100); Basophils Percent Auto 0.5 % (0-2); Eosinophils Absolute Auto 300 /uL (0-450); Eosinophils Percent Auto 3.2 % (2-4); Hemoglobin 13.4 g/dL (13.5-17.5); Lymphocytes Absolute Auto 2000 /uL (1100-4500); Lymphocytes Percent Auto 23.2 % (25-40); Mean Corpuscular HGB Conc 33.4 % (30-36); Mean Corpuscular Hemoglobin 29.7 PG (26-34); Mean Corpuscular Volume 88.8 fL (80-100); Monocytes Absolute Auto 800 /uL (0-900); Monocytes Percent Auto 9.8 % (3-14); Neutrophils Absolute Auto 5500 /uL (1500-7000); Neutrophils Percent Auto 63.3 % (50-75); Platelet Count 247 X10^3/uL (150-400); Red Blood Cell Count 4.51 X10^6/uL (4.5-5.9); Red Cell Distribution Width 14.2 % (11.6-14.8); White Blood Cell Count 8.6 X10^3/uL (4.5-11.0)
[2024-09-18 02:44] LABS: Alanine Aminotransferase 32 IU/L (<50); Albumin 4.2 g/dL (3.5-5.0); Albumin Globulin Ratio 1.3 (1.0-2.8); Alkaline Phosphatase 78 U/L (38-126); Aspartate Aminotransferase 36 IU/L (17-59); BUN Creatinine Ratio 14.1 (6-22); Bilirubin Total 0.8 mg/dL (0.2-1.3); Blood Urea Nitrogen 27 mg/dL (9-20); Calcium 9.4 mg/dL (8.4-10.2); Carbon Dioxide 23 mmol/L (22-32); Chloride 108 mmol/L (98-107); Estimated Glomerular Filt Rate 39 mL/min (>60); Globulin 3.2 g/dL (1.7-4.1); Glucose 113 mg/dL (80-110); HEMOLYSIS < 15 (0-50); Lipase 150 U/L (23-300); Potassium 4.1 mmol/L (3.4-5.1); Sodium 137 mmol/L (137-145); Total Protein 7.4 g/dL (6.3-8.2)
[2024-09-18] MEDS: LIDOCAINE 2% (GLYDO) 6 ML GEL TOP (03:45)
--- NOTE | 2024-09-18 04:40 | PC.NURSE ---
this RN educated patient on changing his catheter bag to a leg bag. all questions answered.
== END 2024-09-18 04:51 | disposition home or self-care (01) ==
PROVIDERS: Emergency Provider Emergency Medicine; PCP Nurse Practitioner
DX: R33.9 Retention of urine, unspecified (principal); R10.32 Left lower quadrant pain
CPT/HCPCS: 36415; 51702; 74177; 80053; 81003; 83690; 85025; 99284; Q9967

== ENCOUNTER 2024-09-18 14:55 | Emergency (ER) | payer SELFPAY ==
[2024-09-18 15:16] VITALS: BP 161/103; PULSE 71; RESP 17; TEMP 37.1; O2SAT 98; BMI 24.4
[2024-09-18 18:25] VITALS: BP 119/73; PULSE 68; RESP 19; TEMP 36.4; O2SAT 97
--- NOTE | 2024-09-18 19:38 | ED_ITS ---
HPI - Recheck/Abnormal Lab/Rx General Chief Complaint: Recheck/Abnormal Lab/Rx Stated Complaint: return from 09/17 catheter issues Time Seen by Provider: 09/18/24 19:27 Source: patient Mode of arrival: Ambulatory History of Present Illness HPI narrative: Patient is a 64-year-old male. I then went in the emergency department yesterday for an acute urinary retention. He had a Alicea catheter placed. Return of almost 3 L of urine. He was started on Flomax. Discharged home. He states that his catheter has been draining but now it is draining blood and he was having some discomfort at the tip of his penis because of the Alicea cathet er. Related Data Previous Rx's Medication Instructions Recorded metoprolol succinate 25 mg 25 mg PO DAILY #30 tabs 03/21/24 tablet,extended release 24 hr rivaroxaban 20 mg tablet (Xarelto) 20 mg PO DAILY #30 tabs 03/21/24 hydroxyzine HCl 50 mg tablet 50 mg PO BEDTIME #14 tabs 03/22/24 lidocaine 5 % topical gel 1 ea topical TID PRN Catheter pain 09/18/24 #10 grams tamsulosin 0.4 mg capsule (Flomax) 0.4 mg PO DAILY #30 caps 09/18/24 Allergies Allergy/AdvReac Type Severity Reaction Status Date / Time No Known Drug Allergies Allergy Verified 09/18/24 15:16 Review of Systems Gastrointestinal Gastrointestinal: Reports system reviewed and no additional complaints, except as documented Genitourinary Genitourinary: Reports system reviewed and no additional complaints, except as documented Patient History Medical History Difficulty urinating Fatigue Shoulder pain (~2017) Chicken pox (~1965) Surgical History Anesthesia History of hand surgery (~1996) Family History Father Cancer Mother History of heart disease Social History Smoking Status: Former smoker Smoking Status: Former smoker alcohol intake frequency: holidays/special occasions only Exam Initial Vital Signs Initial Vital Signs: Vital Signs Temperature 98.7 F 09/18/24 15:16 Pulse Rate 71 09/18/24 15:16 Respiratory Rate 17 09/18/24 15:16 Blood Pressure 161/103 H 09/18/24 15:16 Pulse Oximetry 98 09/18/24 15:16 Oxygen Delivery Method Room Air 09/18/24 15:16 GI Inspection: normal to inspection and non-distended Other: Alicea catheter in place. Tip of penis appears intact without ulcerations. Course Orders Ordered: Discontinued Medications Lidocaine HCl (Lidocaine Jelly 2% 5 Ml) 1 applic TOP NOW ONE Stop: 09/18/24 19:36 Lidocaine HCl (Lidocaine 2% (Glydo) 6 Ml Gel) 6 ml TOP NOW ONE Stop: 09/18/24 19:40 Last Admin: 09/18/24 19:46 Dose: 6 ml Documented By: GRETEL Vital Signs Vital signs: Vital Signs - 8 hr 09/18/24 20:00 Pulse Rate 76 Respiratory Rate 16 Blood Pressure 144/80 H Pulse Oximetry 98 Oxygen Delivery Method Room Air MDM - Recheck/Abnormal Lab/Rx MDM Narrative Medical decision making narrative: Patient's Alicea catheter is draining but there is blood in the urine. Provided reassurance to the patient this is most likely because of the insertion yesterday and also the fact that his bladder was so distended. We discussed that this could be persistent but as long as it is draining it is okay to observe. Will provide lidocaine for the tip of the penis as he was getting some irritation in this area from the Alicea catheter. He was given return precautions and follow-up instructions. He expressed understanding and agreement with the plan. Discharge Plan Departure Patient Disposition: Home Clinical Impression: Hematuria Instructions: DI for Hematuria Activity Restrictions/Additional Instructions: Sure that you are staying hydrated so that you are producing urine to clear out the blood that is present. Continue to take the Flomax. Use the topical lidocaine cream as needed. Continue with the plan to follow up with Urology. Return to the emergency department for new symptoms. Prescriptions: New lidocaine 5 % gel 1 ea topical TID PRN (Reason: Catheter pain) Qty: 10 0RF No Action tamsulosin [Flomax] 0.4 mg capsule 0.4 mg PO DAILY Qty: 30 0RF Xarelto 20 mg tablet 20 mg PO DAILY Qty: 30 0RF Rx Instructions: must administer with evening meal metoprolol succinate 25 mg tablet extended release 24 hr 25 mg PO DAILY Qty: 30 0RF hydroxyzine HCl 50 mg tablet 50 mg PO BEDTIME Qty: 14 0RF Referrals: Shyanne Velez ARNP [Primary Care Provider] - Stand Alone Forms: Patient Portal/API/Survey
[2024-09-18] MEDS: LIDOCAINE 2% (GLYDO) 6 ML GEL TOP (19:46)
[2024-09-18 20:00] VITALS: BP 144/80; PULSE 76; RESP 16; O2SAT 98
== END 2024-09-18 20:02 | disposition home or self-care (01) ==
PROVIDERS: Emergency Provider Emergency Medicine; PCP Nurse Practitioner
DX: R31.9 Hematuria, unspecified (principal)
CPT/HCPCS: 99282

== ENCOUNTER 2024-10-12 02:29 | Emergency (ER) | payer SELFPAY ==
[2024-10-12 02:40] VITALS: BP 137/87; PULSE 40; RESP 18; TEMP 36.5; BMI 30.9
--- NOTE | 2024-10-12 03:05 | ED_ITS ---
HPI - Male Genitourinary General Chief complaint: Urogenital-Male Stated complaint: BLADDER INFECTION Time Seen by Provider: 10/12/24 03:04 Source: patient Mode of arrival: Ambulatory History of Present Illness HPI Narrative: Patient is a 62-year-old male with a past medical history of hyperlipidemia, and acute urinary retention that required catheter previously not requiring it now comes into the ED for evaluation of difficulty urinating, stating that there is also abnormal discharge. States this started today, he states that he did have a catheter removed by his urologist on the of this month, has been having intermittent difficulty initiating a stream but has had significant improvement over the past few days until today which is why he came into the ED for further evaluation treatment. He denies any other symptoms such as headache visual disturbances chest pain shortness breath fever chills nausea vomiting or any other GI/ symptoms time. Related Data Previous Rx's Medication Instructions Recorded tamsulosin 0.4 mg capsule 0.8 mg (2 x 0.4 mg) PO DAILY #180 10/05/24 caps cephalexin 500 mg capsule 500 mg PO TID 7 days #21 caps 10/12/24 Allergies Allergy/AdvReac Type Severity Reaction Status Date / Time No Known Drug Allergies Allergy Verified 09/23/24 11:35 Review of Systems Review of Systems Narrative: General: Denies fever, chills, weight loss HEENT: Denies headache, eye drainage, eye irritation, head trauma, sore throat, voice change Cardiovascular: Denies any chest pain, palpitations, shortness of breath, tachycardia Respiratory: Denies any shortness of breath, cough, wheeze, stridor GI/: Positive urinary retention, Denies any abdominal pain, nausea, vomiting, diarrhea, bright red blood per rectum, melanotic stools, urinary frequency, dysuria, hematuria MSK: Denies any joint pain, muscle pains, swelling Skin: Denies any rashes, lesions, discoloration Neuro: Denies any headache, lightheadedness, dizziness, fainting, weakness Psych: Denies SI/HI Patient History Medical History Hx of atrial fibrillation, no current medication Difficulty urinating Fatigue Shoulder pain (~2018) Chicken pox (~1965) Surgical History Anesthesia History of hand surgery (~1996) Family History Father Cancer Mother History of heart disease Social History marital status: unmarried,single number of children: 3 Smoking Status: Former smoker Tobacco: How many years used: 7 Smokeless tobacco user: chewing tobacco alcohol intake: current caffeine: Yes Smoking Status: Former smoker alcohol intake frequency: holidays/special occasions only Exam Narrative Exam Narrative: General: Cooperative, comfortable, well-developed, not in acute distress HEENT: Normocephalic, atraumatic, PERRLA, normal sclera, eyelids normal, Neck: Active full range of motion, atraumatic Chest: Normal to inspection, negative crepitus, no overlying erythema ecchymosis Respiratory: Normal respiratory effort, not in acute respiratory distress, clear to auscultation bilaterally negative cough, wheeze, tachypnea, rhonchi, rales Cardiology: Regular rate rhythm negative gallop, murmur, rubs GI/: Normal to inspection, soft, nonrigid, no tenderness to palpation, exam deferred MSK: Full range of active range of motion of all 4 extremities, atraumatic Skin: No rashes lesions noted Neuro: Alert awake oriented x3, moves all 4 extremities spontaneously, cranial nerves intact, able to answer all questions appropriately follows commands appropriately Psych: Cooperative, negative suicidal or homicidal ideations Initial Vital Signs Initial Vital Signs: Vital Signs Temperature 97.7 F 10/12/24 02:40 Pulse Rate 40 L 10/12/24 02:40 Respiratory Rate 18 10/12/24 02:40 Blood Pressure 137/87 10/12/24 02:40 Course Orders Ordered: ED Orders 10/12/24 03:18 Urine Culture Stat Urine Microscopic Stat Vital Signs Vital signs: Vital Signs - 8 hr 10/12/24 02:40 Temperature 97.7 F Pulse Rate 40 L Respiratory Rate 18 Blood Pressure 137/87 MDM - Male Genitourinary Differential Diagnosis Differential diagnosis: Likely urinary tract infection and other (Urinary retention) Lab Data Labs: Lab Results 10/12/24 Range/Units 03:18 Urine RBC None seen (0-5/HPF) Urine WBC >100/hpf H (0-5/HPF) Ur Squamous Epith Cells 0-1 /hpf (0-5/HPF) Urine Bacteria Many (>30) H (None) Ur Culture Indicated? Specimen cultured Vol Urine Centrifuged 10ml (spun) Urine Dip Bedside Urine Glucose Negative Bedside Urine Bilirubin - Negative Bedside Urine Ketone - Negative Urine Specific [place] 1.020 Bedside Urine Occult Blood + Bedside Urine pH 6.0 Bedside Urine Protein +/- 15 Bedside Urine Urobilinogen - Negative Bedside Urine Nitrite - Negative Bedside Urine Leukocytes +++ 500 Esterase MDM Narrative Medical decision making narrative: 64-year-old male history of intermittent urinary retention comes into the ED for evaluation dysuria, urinary retention/hesitancy, states he had his urinary catheter removed on 09/30/2024 by his urologist, he said he has had improved symptoms of urinating since then but today had difficulty, also states he is noticed abnormal discharge therefore decided come into the ED for further evaluation treatment. Urinalysis consistent with acute urinary tract infection postvoid residual was 230 therefore risks benefits was performed with the patient and understands and agrees with having Alicea catheter placed and him to follow up with his urologist in outpatient setting, he verbalized understanding of this patient will be sent home with antibiotics Alicea catheter instructed to follow up with his urologist PCP in outpatient setting agrees to being discharged home with outpatient follow up Discharge Plan Departure Patient Disposition: Home Clinical Impression: Acute urinary retention, Urinary tract infection Instructions: How to Care for Your Alicea Catheter -- Male, DI for Urinary Retention in Men Activity Restrictions/Additional Instructions: Please follow up with your urologist Please read the discharge instructions sheet carefully and bring all papers to all doctor follow-up visits, as it may contain information that your doctor may want to see. Disease processes change and evolve, if your symptoms worsen or if you develop any new symptoms that are concerning to you please return for evaluation. Your evaluation today does not show any evidence of any life- threatening/serious illnesses requiring admission to the hospital or surgery. Please follow-up with your doctor for re-evaluation in approximately 1 day. Seek immediate medical attention for any worrisome symptoms. *If you do not have a primary care provider please contact the [facility] Resource line at [phone]. They will ask some questions about your medical history and help get you set up with a doctor in the community. Prescriptions: New cephalexin 500 mg capsule 500 mg PO TID 7 Days Qty: 21 0RF No Action tamsulosin 0.4 mg capsule 0.8 mg PO DAILY Qty: 180 3RF Referrals: Shyanne Velez ARNP [Primary Care Provider] - Stand Alone Forms: Patient Portal/API/Survey
[2024-10-12 03:43] LABS: Bacteria Urine Many (>30); Culture Indicated Urine Specimen Cultured; RBC Urine None Seen (0-5/HPF); Squamous Epithelial Cell Urine 0-1 /HPF (0-5/HPF); Urine Volume 10mL (spun); WBC Urine >100/HPF (0-5/HPF)
[2024-10-12] MEDS: cephALEXin 250 MG CAPSULE 500 MG PO (04:26)
[2024-10-12 05:05] VITALS: BP 157/84; PULSE 84; RESP 16; O2SAT 95
== END 2024-10-12 05:04 | disposition home or self-care (01) ==
PROVIDERS: Emergency Provider Student in an Organized Health Care Education/Training Program; PCP Nurse Practitioner
DX: N39.0 Urinary tract infection, site not specified (principal); R33.8 Other retention of urine
CPT/HCPCS: 81003; 81015; 87077; 87086; 87186; 99283

== ENCOUNTER → 2025-07-01 16:09 | Outpatient (CLI) | payer OTHER, SELFPAY ==
--- NOTE | 2025-07-01 16:10 | DI.ECHO.S_ITS ---
[facility] : : [address] : : [place] : : [id number] : : Phone: [phone] Echocardiogram Report + + :Name: CHIKIS DENNISON Study Date: 07/01/2025 Height: 71 in : :Hospital ReadingLocation: Weight: 186 lb: : Gender: Male BSA: 2.0 m2 : :: 1960 Age: 65 yrs BP: 98/72 mmHg: :Reason For Study: Chronioc systolic heart failure : :Ordering Physician: SURENDRA, : :NILES Performed By: Luis Tejeda : :Referring: NILES ADAMS : + + Interpretation Summary 1) Normal left ventricular size with mildly to moderately reduced systolic function (EF 40-45%). 2) Normal right ventricular size and function. 3) No significant valvular abnormalities. 4) Compared to the Echo done 03/07/2025, LVEF has improved from 15-20% to 40- 45% on this study. Procedure: A two-dimensional transthoracic echocardiogram with color flow and Doppler was performed. The study quality was technically adequate. Comparison is made with the echocardiogram of 03/07/2025. The heart rate ranged between 84-94 bpm during the study. The patient had frequent PVCs during the exam. Left Ventricle: The left ventricle is normal in size. Left ventricular wall thickness is mildly increased. The ejection fraction is estimated to be 40- 45%. There is mild to moderate global hypokinesis of the left ventricle. Diastolic function is indeterminate. Right Ventricle: The right ventricle is normal in size and function. Atria: The left atrium is mildly dilated. Right atrial size is normal. There is no Doppler evidence for an interatrial shunt. Mitral Valve: The mitral valve leaflets appear to open well. There is no mitral valve stenosis. There is trace mitral regurgitation. Aortic Valve: The aortic valve is trileaflet. The aortic valve opens well. There is no aortic valve stenosis. No aortic regurgitation is present. Tricuspid Valve: The tricuspid valve is not well visualized, but is grossly normal. There is mild tricuspid regurgitation. The right ventricular systolic pressure is estimated to be at least 21 mmHg based on an estimated right atrial pressure of 3 mm Hg. Pulmonic Valve: The pulmonic valve is not well seen, but is grossly normal. There is mild pulmonic regurgitation. Great Vessels: The aortic root is normal size. The ascending aorta is normal in size. The aortic arch could not be visualized. The IVC is of normal diameter and collapses greater than 50% with a sniff. This suggests a low right atrial pressure of 3 mm Hg. Pericardium/ Pleura There is no pericardial effusion. MMode/2D Measurements & Calculations LVIDd: 5.5 cm LVOT diam: 2.4 cm LVIDs: 4.1 cm Ao root diam: 3.6 cm FS: 25.7 % asc Aorta Diam: 3.5 cm EPSS: 0.80 cm IVSd: 1.1 cm LVPWd: 1.1 cm LV hernandez. diameter/BSA (cm/m^2): 2.7 LV sys. diameter/BSA (cm/m^2): 2.0 LA A2 area: 24.0 cm2 RA long axis: 5.3 cm LA A4 area: 19.9 cm2 RA area: 16.0 cm2 LA length (vol): 5.9 cm RA vol: 40.7 ml LA vol: 68.4 ml RA : 19.9 ml/m2 LA vol index: 33.5 ml/m2 IVC diam: 1.2 cm RVD1 (basal): 3.3 cm RVD2 (mid): 2.7 cm TAPSE: 1.6 cm Doppler Measurements & Calculations Ao V2 max: 134.7 cm/sec LVOT Max Zak: 75.6 cm/sec Ao V2 mean: 95.0 cm/sec LV V1 max P.3 mmHg Ao max P.3 mmHg LV V1 VTI: 13.6 cm Ao mean P.1 mmHg TATY(I,D): 2.9 cm2 Ao V2 VTI: 21.7 cm TATY(V,D): 2.6 cm2 sev ratio: 0.63 TATY indexed to BSA (cm^2/m^2): 1.4 MV E max zak: 68.3 cm/sec TR max zak: 211.6 cm/sec Med Peak E' Zak: 8.8 cm/sec TR max P.9 mmHg E/E' med: 7.8 PA V2 max: 65.8 cm/sec Lat Peak E' Zak: 9.6 cm/sec PA V2 mean: 47.2 cm/sec E/E' lat: 7.1 PA mean P.0 mmHg E/e' average: 7.4 PA pr(Accel): 45.6 mmHg MV dec time: 0.21 sec SV(LVOT): 63.1 ml Reading Physician:05:15 PM
== END ==
LOC: ECHO 16:10
PROVIDERS: Referring Provider Internal Medicine Cardiovascular Disease; Visit Provider Internal Medicine Cardiovascular Disease
DX: I50.22 Chronic systolic (congestive) heart failure (principal); I07.1 Rheumatic tricuspid insufficiency
CPT/HCPCS: 93306